=== PATIENT | female | born 1990 | race Caucasian/White ===

== ENCOUNTER 2017-04-13 13:26 | Emergency (ER) | payer MEDICAID ==
[2017-04-13 14:03] VITALS: BP 111/66
--- NOTE | 2017-04-13 14:41 | UC ---
Throat Pain/Nasal Benja HPI - HPI Summary HPI Summary: SORE THROAT COUGH, WHEEZING, AND CONGESTION SINCE YESTERDAY. NO FEVER. NO ABDOMINAL PAIN. . NO RASHES. - History of Current Complaint Chief Complaint: UCGeneralIllness Stated Complaint: FEVER,SORE THROAT,WHEEZY Time Seen by Provider: 04/13/17 14:04 Hx Obtained From: Patient Hx Last Menstrual Period: 2 months ago - normal per pt Onset/Duration: Sudden Onset, Lasting Days, Still Present Severity: Mild Pain Intensity: 0 Pain Scale Used: 0-10 Numeric Cough: Nonproductive Associated Signs & Symptoms: Positive: Hoarseness - Allergies/Home Medications Allergies/Adverse Reactions: Allergies Allergy/AdvReac Type Severity Reaction Status Date / Time Iodinated Diagnostic Agents Allergy Anaphylatic Verified 04/13/17 13:58 Shock Home Medications: Home Medications Buprenorphine/Naloxone SL TAB* [Suboxone 8-2 mg SL TAB*] 1 tab.sl SL DAILY 04/13 [History Confirmed 04/13/17] PMH/Surg Hx/FS Hx/Imm Hx Previously Healthy: Yes Other History Of: Negative For: HIV, Hepatitis B, Hepatitis C - Surgical History Surgical History: None - Family History Known Family History: Positive: None Negative: Respiratory Disease Family History: no cardio vascular issues in bio. lineage - Social History Occupation: Employed Full-time Lives: With Family Alcohol Use: None Substance Use Type: None Smoking Status (MU): Light Every Day Tobacco Smoker Type: Cigarettes, eCigarettes Amount Used/How Often: 7 cigarettes daily, vapes Length of Time of Smoking/Using Tobacco: 13 Years Have You Smoked in the Last Year: Yes Household Exposure Type: Cigarettes - Immunization History Most Recent Influenza Vaccination: Not the 2015/2016 Season Review of Systems Constitutional: Negative Skin: Negative Eyes: Negative ENT: Sore Throat, Sinus Congestion Respiratory: Cough Cardiovascular: Negative Gastrointestinal: Negative Genitourinary: Negative Motor: Negative Neurovascular: Negative Musculoskeletal: Negative Neurological: Negative Psychological: Negative Is Patient Immunocompromised?: No All Other Systems Reviewed And Are Negative: Yes Physical Exam Triage Information Reviewed: Yes Appearance: No Pain Distress, Well-Nourished, Ill-Appearing - MILDLY Vital Signs: Initial Vital Signs Temp 98.5 F 04/13/17 13:59 Pulse 79 04/13/17 13:59 Resp 16 04/13/17 13:59 BP 111/66 04/13/17 13:59 Pulse Ox 100 04/13/17 13:59 Vital Signs Reviewed: Yes Eye Exam: Normal ENT Exam: Normal ENT: Positive: Normal ENT inspection Dental Exam: Normal Neck exam: Normal Neck: Positive: Supple, Nontender, No Lymphadenopathy Respiratory Exam: Other - COUGH Respiratory: Positive: Chest non-tender, Normal breath sounds, No respiratory distress, Wheezing Cardiovascular Exam: Normal Cardiovascular: Positive: RRR, No Murmur, Pulses Normal, Brisk Capillary Refill Abdominal Exam: Normal Abdomen Description: Positive: Nontender, No Organomegaly Musculoskeletal Exam: Normal Musculoskeletal: Positive: Strength Intact, ROM Intact Neurological Exam: Normal Psychological Exam: Normal Skin Exam: Normal Throat Pain/Nasal Course/Dx - Differential Dx/Diagnosis Differential Diagnosis/HQI/PQRI: Pharyngitis, Tonsillitis, URI Provider Diagnoses: UPPER RESPIRATORY INFECTION Discharge - Discharge Plan Condition: Stable Disposition: HOME Prescriptions: Albuterol HFA INHALER* [Ventolin HFA Inhaler*] 1 - 2 puff INH Q6H PRN #1 mdi PRN Reason: Wheezing Benzonatate CAP* [Tessalon 100 MG CAP*] 100 mg PO TID PRN #15 cap PRN Reason: Cough Fluticasone NASAL SPRAY 50MCG* [Flonase NASAL SPRAY 50MCG*] 2 spray BOTH NARES DAILY #1 btl Patient Education Materials: Upper Respiratory Infection (ED) Forms: *Work Release Referrals: Brad Almeida MD [Primary Care Provider] -
== END 2017-04-13 14:36 | disposition home or self-care (01) ==
LOC: UCCORT 13:26
DX: J06.9 Acute upper respiratory infection, unspecified (principal); F17.210 Nicotine dependence, cigarettes, uncomplicated
CPT/HCPCS: 99212; G0463

== ENCOUNTER 2017-04-20 16:08 | Emergency (ER) | payer MEDICAID ==
[2017-04-20 17:18] VITALS: BP 96/73
--- NOTE | 2017-04-20 17:34 | UC ---
Respiratory Complaint HPI - History of Current Complaint Chief Complaint: UCRespiratory Stated Complaint: SORE THROAT CONGESTION Time Seen by Provider: 04/20/17 17:15 Hx Last Menstrual Period: 04/12/17 - Allergies/Home Medications Allergies/Adverse Reactions: Allergies Allergy/AdvReac Type Severity Reaction Status Date / Time Iodinated Diagnostic Agents Allergy Anaphylatic Verified 04/20/17 17:18 Shock PMH/Surg Hx/FS Hx/Imm Hx Other History Of: Negative For: HIV, Hepatitis B, Hepatitis C - Surgical History Surgical History: None - Family History Known Family History: Positive: None Negative: Respiratory Disease Family History: no cardio vascular issues in bio. lineage - Social History Alcohol Use: None Substance Use Type: None Smoking Status (MU): Light Every Day Tobacco Smoker Type: Cigarettes, eCigarettes Amount Used/How Often: 7 cigarettes daily, vapes Length of Time of Smoking/Using Tobacco: 13 Years Have You Smoked in the Last Year: Yes Household Exposure Type: Cigarettes - Immunization History Most Recent Influenza Vaccination: Not the Season Physical Exam Vital Signs: Initial Vital Signs Temp 99.0 F 04/20/17 17:15 Pulse 82 04/20/17 17:15 Resp 17 04/20/17 17:15 BP 96/73 04/20/17 17:15 Pulse Ox 99 04/20/17 17:15 UC Diagnostic Evaluation - Laboratory O2 Sat by Pulse Oximetry: 99 Discharge - Discharge Plan Condition: Stable Disposition: HOME Prescriptions: Azithromycin TAB* [Zithromax TAB (Z-ELLIS) 250 mg #6 tabs] 2 tab PO .TODAY, THEN 1 DAILY #6 tab Benzonatate CAP* [Tessalon 100 MG CAP*] 100 mg PO TID PRN #15 cap PRN Reason: Cough predniSONE TAB* [Deltasone TAB*] 10 mg PO DAILY #20 tab Patient Education Materials: Acute Bronchitis (ED), Bronchospasm (ED), How to Stop Smoking (ED) Forms: *Work Release Referrals: Brad Almeida MD [Primary Care Provider] - If Needed
== END 2017-04-20 17:40 | disposition home or self-care (01) ==
LOC: UCCORT 16:08
DX: J02.9 Acute pharyngitis, unspecified (principal); F17.210 Nicotine dependence, cigarettes, uncomplicated
CPT/HCPCS: 99212; G0463